=== PATIENT | female | born 1995 | race Caucasian/White ===

== ENCOUNTER 2023-09-22 22:21 | Emergency (ER) | payer OTHER ==
[~2023-09-22] VITALS: Ht 170.2 cm; Wt 63.6 kg
[2023-09-23] MEDS ORDERED: IBUP-1022 PO (01:08)
[2023-09-23] MEDS: IBUPROFEN 600MG TAB PO ONE (01:18)
[2023-09-23 01:22] VITALS: BP 112/65; TEMP 98.9; O2SAT 100
== END 2023-09-23 01:22 | disposition home or self-care (01) ==
LOC: M ED 22:21
DX: S93.402A Sprain of unspecified ligament of left ankle, initial encounter (principal); X50.1XXA Overexertion from prolonged static or awkward postures, initial encounter; Y92.830 Public park as the place of occurrence of the external cause; Y93.9 Activity, unspecified; Y99.9 Unspecified external cause status

== ENCOUNTER 2023-11-02 19:42 | Emergency (ER) | payer OTHER ==
[~2023-11-02] VITALS: Ht 170.2 cm; Wt 64.4 kg
[~2023-11-02 19:42] MED LIST: IBUP-1022 PO
[2023-11-03 01:22] VITALS: BP 113/67; TEMP 98.4; O2SAT 100
== END 2023-11-03 01:35 | disposition home or self-care (01) ==
LOC: M ED 19:42
DX: S93.402A Sprain of unspecified ligament of left ankle, initial encounter (principal); X50.0XXA Overexertion from strenuous movement or load, initial encounter; Y92.009 Unspecified place in unspecified non-institutional (private) residence as the place of occurrence of the external cause; Y93.01 Activity, walking, marching and hiking; Y99.8 Other external cause status